=== PATIENT | male | born 1995 | race Caucasian/White ===

== ENCOUNTER 2017-08-01 20:10 | Inpatient (IN) | END 2017-08-04 18:35 | disposition home or self-care (01) | DRG 309 ==

== ENCOUNTER 2019-01-26 19:50 | Emergency (ER) | payer OTHER ==
[~2019-01-26] VITALS: Ht 182.9 cm; Wt 142.4 kg
[~2019-01-26 19:50] MED LIST: CYCL10TA7 PO; IBUP-1542 PO; LISI-313 PO; METO-319 PO
[2019-01-26 20:17] VITALS: Ht 182.9 cm; Wt 142.4 kg
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
[2019-01-26] MEDS ORDERED: IBUPROFEN 600 MG TAB PO ONE (21:00)
[2019-01-26 21:30] VITALS: BP 117/66; PULSE 92; RESP 18
== END 2019-01-26 21:30 | disposition home or self-care (01) ==
LOC: FTE 19:50
DX: H92.02 Otalgia, left ear (principal); F17.210 Nicotine dependence, cigarettes, uncomplicated; M54.2 Cervicalgia
CPT/HCPCS: 99283